=== PATIENT | female | born 1965 | race Caucasian/White ===

== ENCOUNTER → 2017-06-24 | Outpatient (CLI) | payer BC ==
--- NOTE | 2017-06-25 11:57 | MM ---
Reason for exam: screening (asymptomatic). Last mammogram was performed 1 year and 1 month ago. History: Patient is nulliparous. Took unspecified hormones for 5 years. Physical Findings: A clinical breast exam by your physician is recommended on an annual basis and results should be correlated with mammographic findings. MG Screening Mammo w CAD Bilateral CC and MLO view(s) were taken. Prior study comparison: May 14, 2016, bilateral MG screening mammo w CAD. April 25, 2015, bilateral MG screening mammo w CAD. The breast tissue is heterogeneously dense. This may lower the sensitivity of mammography. No suspicious abnormality in the right breast. There is a 5mm lateral left breast asymmetry 8.3cm from nipple likely in the superior left breast. ASSESSMENT: Incomplete: need additional imaging evaluation, BI-RAD 0 RECOMMENDATION: Special view mammogram of the left breast. If lesion persists on supplemental views, image directed ultrasound is recommended. [facility] will attempt to contact patient to return for supplemental views and ultrasound if indicated.
== END | disposition home or self-care (01) ==
LOC: RADMAMWWP 16:41
PROVIDERS: ATTEND Obstetrics & Gynecology
CPT/HCPCS: 36415; 77067; 86304

== ENCOUNTER → 2017-07-06 | Outpatient (CLI) | payer BC ==
--- NOTE | 2017-07-07 07:18 | MM ---
Reason for exam: additional evaluation requested from abnormal screening. Last mammogram was performed less than 1 month ago. History: Patient is nulliparous. Took unspecified hormones for 5 years. Physical Findings: Nurse did not find any significant physical abnormalities on exam. MG Work Up Mamm w CAD LT Spot compression CC, spot compression MLO, and ML view(s) were taken of the left breast. Prior study comparison: June 24, 2017, bilateral MG screening mammo w CAD. May 14, 2016, bilateral MG screening mammo w CAD. The breast tissue is heterogeneously dense. This may lower the sensitivity of mammography. No suspicious abnormality. The previously seen abnormality improves on additional views and appears as fibroglandular tissue. These results were verbally communicated with the patient and result sheet given to the patient on 07/06/17. ASSESSMENT: Benign, BI-RAD 2 RECOMMENDATION: Return to routine screening mammogram schedule for both breasts.
== END | disposition home or self-care (01) ==
LOC: RADMAMWWP 15:35
PROVIDERS: ATTEND Obstetrics & Gynecology
DX: R92.8 Other abnormal and inconclusive findings on diagnostic imaging of breast (principal)
CPT/HCPCS: 77065

== ENCOUNTER → 2017-09-21 | Outpatient (CLI) | payer BC ==
[2017-09-21 13:05] LABS: Basophils % (A) 1 %; Eosinophils # (A) 0.2 k/uL (0-0.7); Eosinophils % (A) 3 %; HCT 32.5 % (34.0-46.0); HGB 10.9 gm/dL (11.4-16.0); Lymphocytes # (A) 0.9 k/uL (1.0-4.8); Lymphocytes % (A) 18 %; MCH 33.5 pg (25.0-35.0); MCHC 33.4 g/dL (31.0-37.0); MCV 100.5 fL (80.0-100.0); Mean Platelet Volume 8.5; Monocytes # (A) 0.3 k/uL (0-1.0); Monocytes % (A) 7 %; Neutrophils # (A) 3.4 k/uL (1.3-7.7); Neutrophils % (A) 69 %; Platelet Count 256 k/uL (150-450); Poikilocytosis Slight; RBC 3.24 m/uL (3.80-5.40); RDW 13.7 % (11.5-15.5); WBC 4.9 k/uL (3.8-10.6)
== END | disposition home or self-care (01) ==
LOC: LABWHC1 12:46
PROVIDERS: ATTEND Internal Medicine
DX: D59.8 Other acquired hemolytic anemias (principal)
CPT/HCPCS: 36415; 85025

== ENCOUNTER → 2018-04-11 | Outpatient (CLI) | payer BC ==
--- NOTE | 2018-04-11 10:29 | CT ---
EXAMINATION TYPE: CT abdomen pelvis wo con DATE OF EXAM: 04/11/2018 COMPARISON: 01/27/2016 HISTORY: 52-year-old female Generalized pain CT DLP: 677 mGycm. Automated exposure control for dose reduction was used. TECHNIQUE: Contiguous axial scanning of the abdomen and pelvis without IV contrast. Coronal and sagit tk reconstructions performed. FINDINGS: Heart normal size without pericardial effusion. Mild bronchial wall thickening in the visualized lung s suggests bronchitis or asthma. Lung bases otherwise clear without pleural effusion. Tiny hiatal hernia. Noncontrast appearance of the liver shows a subtle hypodense lesion posteriorly and centrally in the right lobe, axial image 31 that was present on prior exam suggesting a benign etiology. Gallbladder is collapsed. Mild diffuse thickening of the left adrenal gland along with a 1 cm low-density nodule with attenuati on of -20 Hounsfield units compatible with a lipid rich adrenal adenoma. Right adrenal gland, kidneys , and pancreas show no gross abnormality on noncontrast CT. Tiny hilar splenule. No dilated small bowel, free fluid, or free air. Normal appendix. Some liquid stool is noted in the cecum and some prominent fluid filled small bowel loops in the mid and lower abdomen and pelvis. Mild circumferential wall thickening of the proximal and mid sigmoid colon. While there is mild diver ticulosis, no focal inflammatory changes seen centered over a diverticulum. Somewhat irregular appear ance to focal thickening along the mid to distal sigmoid, axial image 89, coronal image 38, and sagit tk image 55 may reflect some apparent stool material. Bladder urine distended. Uterus and both ovaries are visualized. There appear to be prominent follicu lar changes in the ovaries measuring up to 2.1 cm on the left. Multilocular cystic appearance to the cervix measuring up to 3.4 cm, axial image 108 can be correlated with patient's symptoms and Pap smea r results. No abnormal fluid collection in the pelvis or pelvic lymphadenopathy. Bones: No osseous destructive process. Degenerative changes lower thoracic spine and thoracolumbar ju nction. IMPRESSION: 1. While there is proximal to mid sigmoid diverticulosis, inflammatory changes do not appear to be c entered on any diverticulum. Mild circumferential wall thickening involves the proximal to mid sigmoi d colon and there is liquid stool within mid and lower small bowel loops and cecum. Correlate for non specific enterocolitis. 2. Slight irregular thickened appearance focally at the mid to distal sigmoid could be due to mucosa l redundancy or a mucosal lesion; recommend direct visualization if routine screening colonoscopy has not begun. 3. Multilocular cystic appearance to the cervix measuring up to 3.4 cm. Numerous cervical nabothian cysts are possible. More aggressive pathology (ie, adenoma malignum) can be excluded by correlating w ith patient's symptoms and Pap smear results.
[2018-04-11 10:33] LABS: Basophils % (A) 0 %; Eosinophils # (A) 0.1 k/uL (0-0.7); Eosinophils % (A) 1 %; HCT 35.2 % (34.0-46.0); HGB 11.6 gm/dL (11.4-16.0); Lymphocytes # (A) 1.1 k/uL (1.0-4.8); Lymphocytes % (A) 19 %; MCH 34.4 pg (25.0-35.0); MCV 104.2 fL (80.0-100.0); Macrocytosis Slight; Mean Platelet Volume 7.7; Monocytes # (A) 0.3 k/uL (0-1.0); Monocytes % (A) 5 %; Neutrophils # (A) 4.2 k/uL (1.3-7.7); Neutrophils % (A) 73 %; Platelet Count 313 k/uL (150-450); Poikilocytosis Slight; RBC 3.37 m/uL (3.80-5.40); RDW 14.5 % (11.5-15.5); WBC 5.7 k/uL (3.8-10.6)
[2018-04-11 11:58] LABS: Carbon Dioxide 25 mmol/L (22-30); Total Bilirubin 1.1 mg/dL (0.2-1.3); Total Protein 7.3 g/dL (6.3-8.2)
[2018-04-11 11:59] LABS: ALT 24 U/L (9-52); AST 22 U/L (14-36); Albumin 4.1 g/dL (3.5-5.0); Alkaline Phosphatase 98 U/L (38-126); Anion Gap 7 mmol/L; Blood Urea Nitrogen 9 mg/dL (7-17); C Reactive Protein <5.0 mg/L (<10.0); Calcium 9.4 mg/dL (8.4-10.2); Chloride 108 mmol/L (98-107); Glucose 90 mg/dL (74-99); Potassium 4.6 mmol/L (3.5-5.1); Sodium 140 mmol/L (137-145)
[2018-04-11 12:06] LABS: T4, Free (Free Thyroxine) 1.26 ng/dL (0.78-2.19)
[2018-04-11 12:11] LABS: Erythrocyte Sedimentation Rate 61 mm/hr (0-20)
== END ==
LOC: RADCTMAIN 09:50
PROVIDERS: ATTEND Family Medicine
DX: K57.30 Diverticulosis of large intestine without perforation or abscess without bleeding (principal); R10.84 Generalized abdominal pain
CPT/HCPCS: 74176; 80053; 84439; 84443; 85025; 85652; 86140

== ENCOUNTER → 2018-04-18 | Outpatient (CLI) | payer BC ==
[2018-04-18 14:06] LABS: Appearance,Urine Clear (Clear); Bilirubin,Urine Negative (Negative); Blood,Urine Negative (Negative); Color,Urine Light Yellow; Glucose,Urine (UA) Negative (Negative); Ketones,Urine Negative (Negative); Leukocyte Esterase,Urine Negative (Negative); Nitrite,Urine Negative (Negative); Protein,Urine Negative (Negative); Specific Gravity,Urine 1.003 (1.001-1.035); Urobilinogen,Urine <2.0 mg/dL (<2.0)
[2018-04-18 21:16] LABS: DNA Double-Stranded Indetermin (NEGATIVE); RNP 0.5 AI
[2018-04-19 10:58] LABS: ANA Pattern Centromere
[2018-04-19 13:39] LABS: Complement C3 33.2 mg/dL (80.0-207.0)
== END ==
LOC: LABWHC1 12:59
PROVIDERS: ATTEND Internal Medicine Rheumatology
DX: M34.1 CR(E)ST syndrome (principal)
CPT/HCPCS: 36415; 81003; 86038; 86039; 86160; 86225; 86235

== ENCOUNTER → 2018-05-27 | Outpatient (CLI) | payer BC ==
[2018-05-27 17:04] LABS: LDL Cholesterol,Calculated 52.2 mg/dL (0.0-131.0); VLDL Calculation 22.8 mg/dL (5.00-40.00)
== END | disposition home or self-care (01) ==
LOC: LABWHC1 07:32
PROVIDERS: ATTEND Family Medicine
DX: Z13.220 Encounter for screening for lipoid disorders (principal)
CPT/HCPCS: 36415; 80061

== ENCOUNTER → 2018-07-07 | Outpatient (CLI) | payer BC ==
--- NOTE | 2018-07-10 15:04 | MM ---
Reason for exam: screening (asymptomatic). Last mammogram was performed 1 year ago. History: Patient is nulliparous. Took unspecified hormones for 5 years. MG 3D Screening Mammo W/Cad Bilateral CC and MLO view(s) were taken. Prior study comparison: July 06, 2017, left breast MG work up mamm w CAD LT. June 24, 2017, bilateral MG screening mammo w CAD. The breast tissue is heterogeneously dense. This may lower the sensitivity of mammography. The patient has heterogeneously dense breast that is in a complex pattern. No significant changes when compared with prior studies. ASSESSMENT: Benign, BI-RAD 2 RECOMMENDATION: Routine screening mammogram of both breasts in 1 year.
== END | disposition home or self-care (01) ==
LOC: RADMAMWWP 16:42
PROVIDERS: ATTEND Obstetrics & Gynecology
DX: Z12.31 Encounter for screening mammogram for malignant neoplasm of breast (principal); Z80.41 Family history of malignant neoplasm of ovary
CPT/HCPCS: 77063; 77067; 86304

== ENCOUNTER → 2018-10-06 | Outpatient (CLI) | payer BC ==
[2018-10-06 17:28] LABS: Anisocytosis Slight; Basophils % (A) 1 %; Eosinophils # (A) 0.2 k/uL (0-0.7); Eosinophils % (A) 5 %; HCT 26.7 % (34.0-46.0); HGB 8.9 gm/dL (11.4-16.0); Hypochromasia Slight; Lymphocytes % (A) 26 %; MCH 35.4 pg (25.0-35.0); MCHC 33.5 g/dL (31.0-37.0); MCV 105.6 fL (80.0-100.0); Macrocytosis Moderate; Mean Platelet Volume 7.6; Monocytes # (A) 0.4 k/uL (0-1.0); Monocytes % (A) 11 %; Neutrophils % (A) 55 %; Platelet Count 275 k/uL (150-450); Poikilocytosis Slight; RBC 2.53 m/uL (3.80-5.40); RDW 16.1 % (11.5-15.5); WBC 3.7 k/uL (3.8-10.6)
[2018-10-06 20:29] LABS: Erythrocyte Sedimentation Rate 84 mm/hr (0-20)
[2018-10-06 23:57] LABS: C Reactive Protein <0.4 mg/dL (0.0-0.8); Carbon Dioxide 22.1 mmol/L (21.6-31.8); Chloride 109 mmol/L (96-109); Potassium 4.6 mmol/L (3.5-5.5); Sodium 138 mmol/L (135-145); Total Bilirubin 0.9 mg/dL (0.3-1.2); Total Protein 5.8 g/dL (6.2-8.2)
[2018-10-06 23:58] LABS: ALT 10 U/L (8-44); AST 19 U/L (13-35); Alkaline Phosphatase 99 U/L (41-126); Calcium 8.1 mg/dL (8.7-10.3)
== END | disposition home or self-care (01) ==
LOC: LABWHC1 16:45
PROVIDERS: ATTEND Internal Medicine
DX: D59.8 Other acquired hemolytic anemias (principal); I73.00 Raynaud's syndrome without gangrene; M34.1 CR(E)ST syndrome; Z86.2 Personal history of diseases of the blood and blood-forming organs and certain disorders involving the immune mechanism
CPT/HCPCS: 36415; 80051; 82040; 82248; 82310; 82565; 84075; 84155; 84450; 84460; 84520; 85025; 85652; 86140

== ENCOUNTER → 2019-03-17 | Outpatient (CLI) | payer BC ==
[2019-03-17 12:35] LABS: Appearance,Urine Clear (Clear); Bacteria,Urine Rare /hpf; Bilirubin,Urine Negative (Negative); Blood,Urine Negative (Negative); Color,Urine Yellow; Glucose,Urine (UA) Negative (Negative); Ketones,Urine Negative (Negative); Leukocyte Esterase,Urine Negative (Negative); Mucus,Urine Rare /hpf; Nitrite,Urine Negative (Negative); Protein,Urine 2+ (Negative); RBC,Urine 1 /hpf (0-5); Squamous Epithelial Cell,Urine 3 /hpf (0-4); Urobilinogen,Urine <2.0 mg/dL (<2.0); WBC,Urine 1 /hpf (0-5)
[2019-03-17 12:46] LABS: HCT 26.6 % (34.0-46.0); HGB 9.2 gm/dL (11.4-16.0); MCHC 34.8 g/dL (31.0-37.0); MCV 100.5 fL (80.0-100.0); Macrocytosis Slight; Mean Platelet Volume 6.7; Platelet Count 284 k/uL (150-450); Poikilocytosis Slight; RBC 2.64 m/uL (3.80-5.40); RDW 15.2 % (11.5-15.5); WBC 4.1 k/uL (3.8-10.6)
[2019-03-17 15:38] LABS: Erythrocyte Sedimentation Rate 70 mm/hr (0-20)
[2019-03-17 19:08] LABS: ALT 14 U/L (8-44); AST 24 U/L (13-35); African American GFR (CKD) 85.2 (60.0-200.0); Alkaline Phosphatase 94 U/L (41-126); C Reactive Protein <0.4 mg/dL (0.0-0.8); Calcium 8.1 mg/dL (8.7-10.3); Carbon Dioxide 24.3 mmol/L (21.6-31.8); Chloride 107 mmol/L (96-109); Non-African American GFR(CKD) 73.5 (60.0-200.0); Potassium 4.2 mmol/L (3.5-5.5); Sodium 139 mmol/L (135-145); Total Bilirubin 0.8 mg/dL (0.3-1.2); Total Protein 5.9 g/dL (6.2-8.2)
[2019-03-17 19:09] LABS: Creatine Kinase 26 U/L (26-186)
[2019-03-17 19:33] LABS: Anti-Smith Ab Interp NEGATIVE (NEGATIVE); Cardiolipin Ab IgG Interp NEGATIVE (NEGATIVE); Cardiolipin Ab IgM Interp NEGATIVE (NEGATIVE); Cardiolipin IgA Antibody 7.7 U/mL; Cardiolipin IgM Antibody 0.6 U/mL; DNA Double-Stranded Indetermin (NEGATIVE)
[2019-03-18 09:41] LABS: Complement C3 26.2 mg/dL (80.0-207.0)
[2019-03-20 11:43] LABS: ANA Pattern Centromere
[2019-03-20 11:49] LABS: APTT 42 Sec(s) (<43); Dilute Russell Viper Venom 41 Sec(s) (<44)
== END | disposition home or self-care (01) ==
LOC: LABWHC1 11:57
PROVIDERS: ATTEND Internal Medicine Rheumatology
DX: M34.1 CR(E)ST syndrome (principal); M32.9 Systemic lupus erythematosus, unspecified
CPT/HCPCS: 36415; 80051; 81001; 82040; 82248; 82310; 82550; 82565; 84075; 84155; 84450; 84460; 84520; 85027; 85613; 85652; 85730; 86038; 86039; 86140; 86146; 86147; 86160; 86225; 86235

== ENCOUNTER → 2019-05-22 | Outpatient (CLI) | payer BC ==
[2019-05-22 10:31] LABS: African American GFR (CKD) 85.2 (60.0-200.0); Anion Gap 5.6 mmol/L (4.00-12.00); BUN/Creat Ratio 25.56 Ratio (12.00-20.00); Calcium 9.1 mg/dL (8.7-10.3); Carbon Dioxide 26.4 mmol/L (21.6-31.8); Magnesium 1.9 mg/dL (1.5-2.4); Non-African American GFR(CKD) 73.5 (60.0-200.0); Potassium 4.7 mmol/L (3.5-5.5)
== END | disposition home or self-care (01) ==
LOC: LABWHC1 07:41
PROVIDERS: ATTEND Internal Medicine Hospice and Palliative Medicine
DX: I50.9 Heart failure, unspecified (principal)
CPT/HCPCS: 36415; 80048; 83735

== ENCOUNTER → 2019-06-10 | Outpatient (CLI) | payer BC | END | disposition home or self-care (01) | LOC: LABWHC1 09:44 | PROVIDERS: ATTEND Obstetrics & Gynecology | DX: N83.209 Unspecified ovarian cyst, unspecified side (principal) | CPT/HCPCS: 36415; 86304 ==

== ENCOUNTER → 2019-06-24 | Outpatient (CLI) | payer BC | END | disposition home or self-care (01) | LOC: LABWHC1 10:40 | PROVIDERS: ATTEND Family Medicine | DX: E03.9 Hypothyroidism, unspecified (principal); Z68.28 Body mass index [BMI] 28.0-28.9, adult | CPT/HCPCS: 36415; 84443 ==

== ENCOUNTER → 2019-07-14 | Outpatient (CLI) | payer BC ==
--- NOTE | 2019-07-17 11:23 | MM ---
Reason for exam: screening (asymptomatic). Last mammogram was performed 1 year ago. History: Patient is postmenopausal, history of other cancer, and is nulliparous. Took unspecified hormones for 5 years. Physical Findings: A clinical breast exam by your physician is recommended on an annual basis and results should be correlated with mammographic findings. MG 3D Screening Mammo W/Cad Bilateral CC, MLO, and XCCL view(s) were taken. Prior study comparison: July 07, 2018, bilateral MG 3d screening mammo w/cad. July 06, 2017, left breast MG work up mamm w CAD LT. The breast tissue is heterogeneously dense. This may lower the sensitivity of mammography. There is a stable left upper outer quadrant mass at posterior depth. No suspicious abnormality. No significant changes when compared with prior studies. ASSESSMENT: Benign, BI-RAD 2 RECOMMENDATION: Routine screening mammogram of both breasts in 1 year.
== END ==
LOC: RADMAMWWP 07:25
PROVIDERS: ATTEND Obstetrics & Gynecology
DX: Z12.31 Encounter for screening mammogram for malignant neoplasm of breast (principal)
CPT/HCPCS: 77063; 77067

== ENCOUNTER → 2020-01-01 | Outpatient (CLI) | payer BC ==
[2020-01-01 20:28] LABS: African American GFR (CKD) 49.6 (60.0-200.0); Anion Gap 8.3 mmol/L (4.00-12.00); BUN/Creat Ratio 16.43 Ratio (12.00-20.00); Calcium 9.6 mg/dL (8.7-10.3); Carbon Dioxide 24.7 mmol/L (21.6-31.8); Non-African American GFR(CKD) 42.8 (60.0-200.0); Potassium 4.7 mmol/L (3.5-5.5)
== END | disposition home or self-care (01) ==
LOC: LABWHC1 13:47
PROVIDERS: ATTEND Internal Medicine
DX: I50.9 Heart failure, unspecified (principal)
CPT/HCPCS: 36415; 80048; 83880

== ENCOUNTER → 2020-03-18 | Outpatient (CLI) | payer BC | END | disposition home or self-care (01) | LOC: LABWHC1 13:19 | PROVIDERS: ATTEND Family Medicine | DX: E03.9 Hypothyroidism, unspecified (principal) | CPT/HCPCS: 36415; 84439; 84443 ==

== ENCOUNTER → 2020-05-28 | Outpatient (CLI) | payer BC | END | disposition home or self-care (01) | LOC: LABWHC1 12:57 | PROVIDERS: ATTEND Obstetrics & Gynecology | DX: Z12.73 Encounter for screening for malignant neoplasm of ovary (principal); Z80.41 Family history of malignant neoplasm of ovary | CPT/HCPCS: 36415; 86304 ==

== ENCOUNTER → 2020-06-04 | Outpatient (CLI) | payer BC ==
[2020-06-04 11:25] LABS: Basophils % (A) 0 %; Eosinophils # (A) 0.1 k/uL (0-0.7); Eosinophils % (A) 6 %; HCT 27.8 % (34.0-46.0); HGB 9.2 gm/dL (11.4-16.0); Lymphocytes # (A) 0.4 k/uL (1.0-4.8); Lymphocytes % (A) 20 %; MCH 30.5 pg (25.0-35.0); MCHC 33.2 g/dL (31.0-37.0); MCV 91.9 fL (80.0-100.0); Mean Platelet Volume 9.1; Monocytes # (A) 0.1 k/uL (0-1.0); Monocytes % (A) 7 %; Neutrophils # (A) 1.4 k/uL (1.3-7.7); Neutrophils % (A) 66 %; Platelet Count 171 k/uL (150-450); RBC 3.02 m/uL (3.80-5.40); RDW 13.4 % (11.5-15.5); WBC 2.2 k/uL (3.8-10.6)
[2020-06-04 11:28] LABS: Appearance,Urine Clear (Clear); Bilirubin,Urine Negative (Negative); Blood,Urine Negative (Negative); Color,Urine Yellow; Glucose,Urine (UA) Negative (Negative); Ketones,Urine Negative (Negative); Leukocyte Esterase,Urine Negative (Negative); Nitrite,Urine Negative (Negative); PH, Urine 5.5 (5.0-8.0); Protein,Urine Negative (Negative); Specific Gravity,Urine 1.012 (1.001-1.035); Urobilinogen,Urine <2.0 mg/dL (<2.0)
[2020-06-04 11:46] LABS: Creatinine,Urine Random 106.7 mg/dL; Protein/Creatinine Ratio,Urine 0.094
[2020-06-04 17:07] LABS: African American GFR (CKD) 49.6 (60.0-200.0); Albumin/Globulin Ratio 1.9 (1.60-3.17); Anion Gap 7.2 mmol/L (4.00-12.00); BUN/Creat Ratio 12.86 Ratio (12.00-20.00); Calcium 9.5 mg/dL (8.7-10.3); Carbon Dioxide 24.8 mmol/L (21.6-31.8); Globulin 2.1 g/dL (1.6-3.3); Non-African American GFR(CKD) 42.8 (60.0-200.0); Potassium 4.9 mmol/L (3.5-5.5); Total Bilirubin 0.3 mg/dL (0.2-1.2); Total Protein 6.1 g/dL (6.2-8.2)
== END | disposition home or self-care (01) ==
LOC: LABWHC1 10:15
PROVIDERS: ATTEND Internal Medicine
DX: D64.9 Anemia, unspecified (principal); M32.9 Systemic lupus erythematosus, unspecified; D72.819 Decreased white blood cell count, unspecified
CPT/HCPCS: 36415; 80053; 81003; 82570; 83010; 83615; 84156; 85025; 86880

== ENCOUNTER → 2020-07-15 | Outpatient (CLI) | payer BC ==
[2020-07-15 11:23] LABS: Basophils % (A) 0 %; Eosinophils % (A) 2 %; HCT 27.2 % (34.0-46.0); HGB 9.2 gm/dL (11.4-16.0); Lymphocytes # (A) 0.3 k/uL (1.0-4.8); Lymphocytes % (A) 11 %; MCHC 33.9 g/dL (31.0-37.0); MCV 91.4 fL (80.0-100.0); Monocytes # (A) 0.2 k/uL (0-1.0); Monocytes % (A) 7 %; Neutrophils % (A) 77 %; Platelet Count 202 k/uL (150-450); RBC 2.97 m/uL (3.80-5.40); RDW 13.6 % (11.5-15.5); WBC 2.6 k/uL (3.8-10.6)
== END | disposition home or self-care (01) ==
LOC: LABPAT 10:46
PROVIDERS: ATTEND Obstetrics & Gynecology
DX: Z01.818 Encounter for other preprocedural examination (principal)
CPT/HCPCS: 85025

== ENCOUNTER → 2020-07-19 | Outpatient (CLI) | payer BC ==
[2020-07-19 14:54] LABS: Appearance,Urine Clear (Clear); Bilirubin,Urine Negative (Negative); Blood,Urine Negative (Negative); Color,Urine Light Yellow; Glucose,Urine (UA) Negative (Negative); Ketones,Urine Negative (Negative); Leukocyte Esterase,Urine Negative (Negative); Nitrite,Urine Negative (Negative); Protein,Urine Negative (Negative); Specific Gravity,Urine 1.006 (1.001-1.035); Urobilinogen,Urine <2.0 mg/dL (<2.0)
[2020-07-19 20:09] LABS: HGB 8.7 g/dL (12.0-15.0); MCH 33.7 pg (27.0-32.0); MCHC 33.5 g/dL (32.0-37.0); MCV 100.8 fL (80.0-97.0); Mean Platelet Volume 12.2 fL (9.5-12.2); Platelet Count 208 X 10*3/uL (140-440); RBC 2.58 X 10*6/uL (4.10-5.20); WBC 3.71 X 10*3/uL (4.50-10.00)
[2020-07-19 22:35] LABS: Creatinine,Urine Random 35.6 mg/dL
[2020-07-19 22:36] LABS: Total Protein,Urine Random <4.0 mg/dL (0.0-13.5)
[2020-07-19 23:21] LABS: African American GFR (CKD) 49.6 (60.0-200.0); Anion Gap 8.4 mmol/L (4.00-12.00); BUN/Creat Ratio 19.29 Ratio (12.00-20.00); Carbon Dioxide 21.6 mmol/L (21.6-31.8); Non-African American GFR(CKD) 42.8 (60.0-200.0); Potassium 4.7 mmol/L (3.5-5.5)
== END | disposition home or self-care (01) ==
LOC: LABWHC1 12:34
PROVIDERS: ATTEND Internal Medicine
DX: M32.14 Glomerular disease in systemic lupus erythematosus (principal); R79.89 Other specified abnormal findings of blood chemistry
CPT/HCPCS: 36415; 80048; 81003; 82570; 84156; 85027

== ENCOUNTER 2020-07-22 05:49 | Day surgery (SDC) | payer BC ==
[2020-07-18 11:26] VITALS: BMI 28.3
--- NOTE | 2020-07-21 08:52 | P.HPOB ---
History of Present Illness H&P Date: 07/21/20 Chief Complaint: High-grade cervical dysplasia This patient is a pleasant 54-year-old 0 para 0 female who has a history of a LEEP approximately 10 years ago who is been followed for abnormal Paps. Patient most recently had a repeat colposcopy which showed high-grade dysplasia (KATERINE-2 of the ectocervix and low-grade dysplasia of the endocervix. Patient now presents for repeat LEEP excision of this area. Review of Systems Genitourinary: Reports as per HPI Past Medical History Past Medical History: Heart Failure, GERD/Reflux, Hypertension, Rheumatoid Arthritis (RA), Thyroid Disorder Additional Past Medical History / Comment(s): LUPUS-SEVERAL TYPES-HAD CHEMO. RAYNAUD'S. ABN. PAP. HEMOLYTIC ANEMIA History of Any Multi-Drug Resistant Organisms: None Reported Past Surgical History: Cholecystectomy Additional Past Surgical History / Comment(s): COLONOSCOPY. LEEP Past Anesthesia/Blood Transfusion Reactions: No Reported Reaction Past Psychological History: No Psychological Hx Reported Smoking Status: Former smoker Past Alcohol Use History: None Reported Past Drug Use History: None Reported - Past Family History Father Family Medical History: Cancer Brother(s) Family Medical History: Cancer Sister(s) Family Medical History: Cancer Medications and Allergies Home Medications Medication Instructions Recorded Confirmed Type Belimumab [Benlysta] 200 mg SQ WEEKLY 07/18/20 07/18/20 History Calcium Carbonate [Calcium] 600 mg PO DAILY 07/18/20 07/18/20 History Carvedilol [Coreg] 12.5 mg PO BID 07/18/20 07/18/20 History Cholecalciferol [Vitamin D3 (25 50 mcg PO DAILY 07/18/20 07/18/20 History Mcg = 1000 Iu)] Folic Acid 1 mg PO DAILY 07/18/20 07/18/20 History Furosemide [Lasix] 40 mg PO MOWEFR 07/18/20 07/18/20 History Hydroxychloroquine Sulfate 300 mg PO DAILY 07/18/20 07/18/20 History [Plaquenil] Levothyroxine Sodium [Synthroid] 125 mcg PO DAILY 07/18/20 07/18/20 History Omeprazole [PriLOSEC] 20 mg PO AC-BRKFST 07/18/20 07/18/20 History lisinopriL 40 mg PO DAILY 07/18/20 07/18/20 History mycophenolate mofetiL [Cellcept] 1,000 mg PO BID 07/18/20 07/18/20 History predniSONE 5 mg PO DAILY 07/18/20 07/18/20 History Allergies Allergy/AdvReac Type Severity Reaction Status Date / Time No Known Allergies Allergy Verified 07/18/20 11:17 Exam - OBG Physical Exam Abdomen: bowel sounds normal, no diffuse tenderness, no bruit present, no guarding noted, no hepatomegaly, no splenomegaly, no mass Vulva: both: normal Vagina: normal moisture, no discharge Cervix: Patient had mild acetowhite changes at 11:00. Cervix: no lesion, no discharge Uterus: normal size, normal contour Results Colposcopy on June 24 showed low-grade dysplasia of the endocervix and high- grade dysplasia of the ectocervix at 11:00. Assessment and Plan Assessment: This is a pleasant 54-year-old [id number] para 0 female with high-grade ectocervical dysplasia who is presenting for colposcopy with LEEP excision of the ectocervix and endocervix. Patient I have discussed the surgery and risks including risk of infection, bleeding. All the patient's questions have been answered and a written consent is obtained. (1) High grade squamous intraepithelial lesion (HGSIL), grade 2 KATERINE, on biopsy of cervix Status: Acute Code(s): N87.1 - MODERATE CERVICAL DYSPLASIA SNOMED Code(s): 912232475
[~2020-07-22 05:49] MED LIST: Pre Op ABX Message 1 EACH MISC MISCELLANE ONE
[2020-07-22] MEDS ORDERED: LACTATED RINGERS 1,000 ML IV SCH (05:51)
[2020-07-22] MEDS ORDERED: HYDROmorphone 0.5 MG/0.5 ML SYRINGE IVP PRN (05:51)
[2020-07-22] MEDS ORDERED: ONDANSETRON 4 MG/2 ML VIAL IVP ONE (05:51)
[2020-07-22] MEDS ORDERED: DEXAMETHASONE SOD PHOSPHATE 4 MG/ML 1 ML VIAL IV ONE (05:51)
[2020-07-22 06:18] VITALS: RESP 16
[2020-07-22] MEDS ORDERED: LIDOCAINE 1% (10MG/ML) FOR IV START INTRADERMA ONE (06:45)
[2020-07-22 06:49] LABS: Glucose,Whole Blood 85 mg/dL (75-99)
[2020-07-22] MEDS ORDERED: LIDOCAINE 1% INJ 10MG/ML (20 ML MDV) ONE (06:56)
[2020-07-22] MEDS ORDERED: KETOROLAC 15 MG/ML 1 ML VIAL ONE (06:56)
[2020-07-22] MEDS ORDERED: MIDAZOLAM 2 MG/2 ML VIAL ONE (06:56)
[2020-07-22] MEDS ORDERED: fentaNYL (PF) 50 MCG/ML 2 ML AMP ONE (06:56)
[2020-07-22] MEDS ORDERED: PROPOFOL 10 MG/ML 20 ML VIAL IV ONE (06:56)
[2020-07-22] MEDS ORDERED: IODINE/POTASS IOD (LUGOLS) BOTTLE TOPICAL ONE (07:15)
[2020-07-22] MEDS ORDERED: FERRIC SUBSULFATE (MONSELS) JAR TOPICAL ONE (07:20)
--- NOTE | 2020-07-22 07:38 | P.OP ---
Date of Procedure: 07/22/20 Preoperative Diagnosis: High-grade ectocervical dysplasia Postoperative Diagnosis: Same Procedure(s) Performed: Colposcopy with excision of the ectocervix endocervix. Anesthesia: MAC Surgeon: Steven Cunha Estimated Blood Loss (ml): 5 Urine output (ml): 15 Pathology: other (The cervix and endocervix) Condition: stable Disposition: PACU Indications for Procedure: Please see dictated H&P for intimate details of this patient's admission. Brief summary this is a pleasant 54-year-old 0 para 0 female who presents for colposcopy with LEEP excision of the cervix secondary to recurrent cervical dysplasia, high-grade of the ectocervix. Patient and I have discussed the surgery and risks including risks of infection and bleeding. All the patient's questions have been answered and a written consent is obtained. Operative Findings: This patient had a atrophic cervix with previous surgical changes. Description of Procedure: This patient is taken to the operating room where she is laid in the supine position. She subsequent undergoes general mask anesthesia without incident. With an adequate level of anesthesia she's placed in dorsal lithotomy position. She has a vaginal, perineal prep and drape. At this time the bladder is drained for 15 mL of clear urine. The laser speculum was then placed in the vagina. Colposcopy is then performed and no significant ectocervical lesions are noted. Patient did have previous LEEP in the past cervix is thick and stenotic. Cervix is also not very large. With this reasoning, I take the small LEEP loop and make several passes of the ectocervix removing the entire ectocervical portion near the transformation zone. A second pass is made deeply of the endocervix and this is sent separately. There is minimal bleeding. Using the cautery I then cauterized entire margins and endocervical bed. There is again barely any bleeding therefore Monsel solution is applied for added hemostasis. This point the procedure is ended. The was removed. All counts correct 3. There are no complications. Patient is awakened from anesthesia and taken recovery room satisfactory condition.
[2020-07-22 07:42] VITALS: TEMP 97.2
[2020-07-22 08:54] VITALS: BP 113/76; PULSE 78
== END 2020-07-22 09:30 | disposition home or self-care (01) ==
LOC: OR 05:49
PROVIDERS: ATTEND Obstetrics & Gynecology
DX: N87.1 Moderate cervical dysplasia (principal); N87.9 Dysplasia of cervix uteri, unspecified; I11.0 Hypertensive heart disease with heart failure; I50.9 Heart failure, unspecified; K21.9 Gastro-esophageal reflux disease without esophagitis; M32.8 Other forms of systemic lupus erythematosus; M06.9 Rheumatoid arthritis, unspecified; Z92.21 Personal history of antineoplastic chemotherapy; E07.9 Disorder of thyroid, unspecified; I73.00 Raynaud's syndrome without gangrene; D58.9 Hereditary hemolytic anemia, unspecified; Z90.49 Acquired absence of other specified parts of digestive tract; Z98.890 Other specified postprocedural states; Z87.891 Personal history of nicotine dependence; Z80.9 Family history of malignant neoplasm, unspecified; Z79.890 Hormone replacement therapy; Z79.52 Long term (current) use of systemic steroids; Z79.899 Other long term (current) drug therapy; Z79.1 Long term (current) use of non-steroidal anti-inflammatories (NSAID)
CPT/HCPCS: 57461; 81025; 88305; 88307; J2250; J1100; J2405; J2001; J3010; J1885; J2704

== ENCOUNTER → 2020-07-23 | Outpatient (CLI) | payer BC ==
--- NOTE | 2020-07-26 10:50 | MM ---
Reason for exam: screening (asymptomatic). Last mammogram was performed 1 year ago. History: Patient is postmenopausal, history of other cancer, and is nulliparous. Family history of breast cancer in sister at age 62. Took unspecified hormones for 5 years. Physical Findings: A clinical breast exam by your physician is recommended on an annual basis and results should be correlated with mammographic findings. MG 3D Screening Mammo W/Cad Bilateral CC and MLO view(s) were taken. Prior study comparison: July 14, 2019, bilateral MG 3d screening mammo w/cad. July 07, 2018, bilateral MG 3d screening mammo w/cad. The breast tissue is heterogeneously dense. This may lower the sensitivity of mammography. There is chronic nodularity in the left breast posterior upper outer quadrant. No significant changes when compared with prior studies. ASSESSMENT: Benign, BI-RAD 2 RECOMMENDATION: Routine screening mammogram of both breasts in 1 year.
== END | disposition home or self-care (01) ==
LOC: RADMAMWWP 14:57
PROVIDERS: ATTEND Obstetrics & Gynecology
DX: Z12.31 Encounter for screening mammogram for malignant neoplasm of breast (principal)
CPT/HCPCS: 77063; 77067

== ENCOUNTER → 2020-08-02 | Outpatient (CLI) | payer BC ==
[2020-08-02 19:25] LABS: Basophils # (A) 0.02 X 10*3/uL (0.00-0.10); Basophils % (A) 0.5 %; Eosinophils # (A) 0.03 X 10*3/uL (0.04-0.35); Eosinophils % (A) 0.7 %; HCT 28.6 % (37.2-46.3); HGB 9.2 g/dL (12.0-15.0); Lymphocytes # (A) 0.27 X 10*3/uL (0.90-5.00); Lymphocytes % (A) 6.3 %; MCH 32.9 pg (27.0-32.0); MCHC 32.2 g/dL (32.0-37.0); MCV 102.1 fL (80.0-97.0); Mean Platelet Volume 11.9 fL (9.5-12.2); Monocytes # (A) 0.31 X 10*3/uL (0.20-1.00); Monocytes % (A) 7.2 %; Neutrophils # (A) 3.64 X 10*3/uL (1.80-7.70); Neutrophils % (A) 84.8 %; Platelet Count 228 X 10*3/uL (140-440); RDW 14.6 % (11.5-14.5); WBC 4.29 X 10*3/uL (4.50-10.00)
[2020-08-02 20:01] LABS: African American GFR (CKD) 59.8 (60.0-200.0); Anion Gap 8.4 mmol/L (4.00-12.00); BUN/Creat Ratio 13.33 Ratio (12.00-20.00); Calcium 9.2 mg/dL (8.7-10.3); Carbon Dioxide 26.6 mmol/L (21.6-31.8); Non-African American GFR(CKD) 51.6 (60.0-200.0); Potassium 4.2 mmol/L (3.5-5.5)
== END | disposition home or self-care (01) ==
LOC: LABWHC1 12:45
DX: M32.9 Systemic lupus erythematosus, unspecified (principal); Z51.81 Encounter for therapeutic drug level monitoring
CPT/HCPCS: 36415; 80048; 85025

== ENCOUNTER → 2020-08-14 | Outpatient (CLI) | payer BC ==
[2020-08-14 15:23] LABS: Appearance,Urine Clear (Clear); Bacteria,Urine Rare /hpf; Bilirubin,Urine Negative (Negative); Blood,Urine Negative (Negative); Color,Urine Colorless; Glucose,Urine (UA) Negative (Negative); Ketones,Urine Negative (Negative); Leukocyte Esterase,Urine Large (Negative); Nitrite,Urine Negative (Negative); PH, Urine 5.5 (5.0-8.0); Protein,Urine Negative (Negative); RBC,Urine 1 /hpf (0-5); Specific Gravity,Urine 1.002 (1.001-1.035); Squamous Epithelial Cell,Urine 1 /hpf (0-4); Urobilinogen,Urine <2.0 mg/dL (<2.0); WBC,Urine 5 /hpf (0-5)
[2020-08-14 15:31] LABS: Albumin 3.7 g/dL (3.5-5.0); Calcium 8.9 mg/dL (8.4-10.2); Potassium 4.5 mmol/L (3.5-5.1); Total Bilirubin 0.4 mg/dL (0.2-1.3); Total Protein 6.1 g/dL (6.3-8.2)
[2020-08-14 15:33] LABS: Creatinine,Urine Random 22.2 mg/dL; Protein/Creatinine Ratio,Urine 0.676
[2020-08-14 15:59] LABS: Basophils % (A) 0 %; Eosinophils % (A) 1 %; HCT 27.1 % (34.0-46.0); HGB 8.7 gm/dL (11.4-16.0); Lymphocytes # (A) 0.4 k/uL (1.0-4.8); Lymphocytes % (A) 8 %; MCH 30.8 pg (25.0-35.0); MCHC 32.2 g/dL (31.0-37.0); MCV 95.6 fL (80.0-100.0); Mean Platelet Volume 8.6; Monocytes # (A) 0.3 k/uL (0-1.0); Monocytes % (A) 6 %; Neutrophils # (A) 3.6 k/uL (1.3-7.7); Neutrophils % (A) 84 %; Platelet Count 183 k/uL (150-450); RBC 2.84 m/uL (3.80-5.40); RDW 14.4 % (11.5-15.5); WBC 4.3 k/uL (3.8-10.6)
--- NOTE | 2020-08-14 16:36 | US ---
EXAMINATION TYPE: US kidneys/renal and bladder DATE OF EXAM: 08/14/2020 COMPARISON: None CLINICAL HISTORY: 54-year-old female R79.89 Elevated creatinine. TECHNIQUE: Multiple sonographic images of the kidneys and bladder are obtained. EXAM MEASUREMENTS: Right Kidney: 9.7 x 4.4 x 5.0 cm. A few images suggest fullness of the right pelvicalyceal system. Left Kidney: 11.1 x 5.1 x 4.8 cm without hydronephrosis. No hydronephrosis on either side. Business Performance Advisor notes: Arterial and venous flow demonstrated bilaterally. Bladder: Partial distention of the bladder limits its evaluation. Bilateral Jets seen: no IMPRESSION: Mild right-sided pelvicaliectasis may be transient. Short interval follow-up ultrasound and assessmen t for any right-sided renal colic symptoms to exclude early hydronephrosis.
[2020-08-14 20:54] LABS: DNA Double-Stranded NEGATIVE (NEGATIVE)
[2020-08-15 15:09] LABS: Complement C3 38.1 mg/dL (80.0-207.0)
== END ==
LOC: RADUSWWP 14:28
PROVIDERS: ATTEND Internal Medicine
DX: R79.89 Other specified abnormal findings of blood chemistry (principal)
CPT/HCPCS: 76770; 80053; 81001; 82570; 84156; 85025; 86160; 86225; 88108

== ENCOUNTER → 2021-01-10 | Outpatient (CLI) | payer BC | END | disposition home or self-care (01) | LOC: LABWHC1 14:10 | PROVIDERS: ATTEND Family Medicine | DX: E03.9 Hypothyroidism, unspecified (principal) | CPT/HCPCS: 36415; 84443 ==